=== PATIENT | female | born 1965 | race Caucasian/White ===

== ENCOUNTER → 2017-10-20 | Outpatient (CLI) | payer BC ==
--- NOTE | 2017-10-20 15:24 | RAD ---
3 views left ankle 10/20/2017 2:00 AM Indication: injury to lower limb Comparison: None Findings: There is no fracture or dislocation identified. Articular surfaces are uninterrupted. Postoperative changes involving the calcaneus and talus noted. Soft tissues are unremarkable. Impression: No evidence of acute osseous abnormality
== END | disposition home or self-care (01) ==
LOC: PMG 10:39
PROVIDERS: ATTEND Physician Assistant Medical
DX: S89.82XD Other specified injuries of left lower leg, subsequent encounter (principal); X58.XXXD Exposure to other specified factors, subsequent encounter
CPT/HCPCS: 73600